=== PATIENT | female | born 1960 | race Caucasian/White ===

== ENCOUNTER 2017-12-13 21:17 | Emergency (ER) | payer OTHER ==
[~2017-12-13] VITALS: Ht 170.2 cm; Wt 77.6 kg
[~2017-12-13 21:17] MED LIST: NEXIUM40 MG; SYNTHROID75 MCG PO
[2017-12-13 21:24] VITALS: BP 133/87
[2017-12-13] MEDS ORDERED: NAPROSYN500 MG PO (22:45)
[2017-12-13] MEDS ORDERED: NORCO 5/3251 TABLET PO (22:45)
== END 2017-12-13 23:34 | disposition home or self-care (01) ==
LOC: EME 21:17
DX: S93.401A Sprain of unspecified ligament of right ankle, initial encounter (principal); S93.601A Unspecified sprain of right foot, initial encounter; X50.1XXA Overexertion from prolonged static or awkward postures, initial encounter; W18.39XA Other fall on same level, initial encounter; Y93.H2 Activity, gardening and landscaping; Y92.096 Garden or yard of other non-institutional residence as the place of occurrence of the external cause; F17.200 Nicotine dependence, unspecified, uncomplicated
CPT/HCPCS: 73610; 73630; 99281; 99284